=== PATIENT | male | born 1975 | race African-American/Black ===

== ENCOUNTER 2020-07-09 16:47 | Outpatient (CLI) | payer OTHER, SELFPAY | END 2020-07-09 16:48 | disposition home or self-care (01) | LOC: ANHCOVIDVC 16:48 | DX: Z23 Encounter for immunization (principal) | CPT/HCPCS: 0001A; 91300 ==

== ENCOUNTER 2020-07-31 14:49 | Outpatient (CLI) | payer OTHER, SELFPAY | END 2020-07-31 14:50 | disposition home or self-care (01) | LOC: ANHCOVIDVC 14:49 | DX: Z23 Encounter for immunization (principal) | CPT/HCPCS: 0002A; 91300 ==